=== PATIENT | male | born 1940 | race Caucasian/White ===

== ENCOUNTER 2017-06-11 18:32 | Emergency (ER) | payer OTHER, MEDICAID ==
[2017-06-11] MEDS: morphine 4 MG/ML VIAL IV (23:19)
[2017-06-11] MEDS: ONDANSETRON 4 MG INJ IV (23:19)
[2017-06-11] MEDS: BARIUM SULF 2% 450 ML BTL (BERRY SMOOTHIE) PO (23:19)
[2017-06-11] MEDS: SOD CHLORIDE 0.9% 500 ML IV (23:19)
[2017-06-11 23:29] LABS: ADD MAN DIFF? NO
[2017-06-11 23:32] LABS: WHITE BLOOD COUNT 15.8 10^3/ul (4.8-10.8)
[2017-06-11 23:32] LABS: BASOPHILS % 0.2 % (0.0-2.0); HEMATOCRIT 41.4 % (42.0-52.0); HEMOGLOBIN 14.1 g/dl (14.0-18.0); LYMPHOCYTES # 0.8 10^3/ul (0.8-2.9); LYMPHOCYTES % 5.1 % (15.0-51.0); MEAN CORPUSCULAR HEMOGLOBIN 29.9 pg (29.0-33.0); MEAN CORPUSCULAR HGB CONC 34.1 g/dl (32.0-37.0); MEAN CORPUSCULAR VOLUME 87.7 fl (82.0-101.0); MEAN PLATELET VOLUME 10.2 fl (7.4-10.4); MONOCYTE # 0.8 10^3/ul (0.3-0.9); MONOCYTES % 4.7 % (0.0-11.0); NEUTROPHIL # 14.1 10^3/ul (1.6-7.5); NEUTROPHILS % 89.4 % (39.0-77.0); PLATELET COUNT 219 10^3/UL (140-415); POSITIVE DIFF @See below; RED BLOOD COUNT 4.72 10^6/ul (4.70-6.10); RED CELL DISTRIBUTION WIDTH 13.2 % (11.5-14.5)
[2017-06-12 00:06] LABS: ALANINE AMINOTRANSFERASE 61 IU/L (13-69); ALBUMIN 3.9 g/dl (3.3-4.9); ALBUMIN/GLOBULIN RATIO 1.18; ALKALINE PHOSPHATASE 77 IU/L (42-121); ANION GAP 16 (8-16); ASPARTATE AMINO TRANSFERASE 29 IU/L (15-46); BILIRUBIN,INDIRECT 0.8 mg/dl (0-1.1); BILIRUBIN,TOTAL 0.8 mg/dl (0.2-1.3); BLOOD UREA NITROGEN 21 mg/dl (7-20); CALCIUM 9.3 mg/dl (8.4-10.2); CARBON DIOXIDE 27 mmol/L (21-31); CHLORIDE 98 mmol/L (97-110); CREATININE 0.88 mg/dl (0.61-1.24); GLUCOSE 158 mg/dl (70-220); LIPASE 19 U/L (23-300); POTASSIUM 3.5 mmol/L (3.5-5.1); SODIUM 137 mmol/L (135-144); TOTAL PROTEIN 7.2 g/dl (6.1-8.1)
[2017-06-12] MEDS: SOD CHLORIDE 0.9% 100 ML (02:02)
[2017-06-12] MEDS: IOHEXOL 300MG/ML 150 ML BTL (02:02)
== END 2017-06-12 03:30 | disposition home or self-care (01) ==
LOC: E/R 06-12 03:30 → FTE 18:32
DX: R10.84 Generalized abdominal pain (principal); I10 Essential (primary) hypertension; R11.10 Vomiting, unspecified; R19.7 Diarrhea, unspecified; E11.9 Type 2 diabetes mellitus without complications
CPT/HCPCS: 36415; 74177; 80053; 83690; 85025; 96374; 96375; 99285-25

== ENCOUNTER 2017-08-08 16:05 | Emergency (ER) | payer SELFPAY, OTHER, MEDICARE | END 2017-08-08 16:53 | disposition left against medical advice (07) | LOC: E/R 16:05 | DX: Z53.21 Procedure and treatment not carried out due to patient leaving prior to being seen by health care provider (principal) ==